=== PATIENT | male | born 1985 | race American Indian/Alaskan Native ===

== ENCOUNTER 2020-11-24 19:41 | Emergency (ER) | payer BC ==
[2020-11-25 00:32] VITALS: BP 109/85
== END 2020-11-25 00:26 | disposition home or self-care (01) ==
LOC: ED 19:41
DX: T78.40XA Allergy, unspecified, initial encounter (principal); L50.8 Other urticaria; L29.9 Pruritus, unspecified; F12.90 Cannabis use, unspecified, uncomplicated; F17.200 Nicotine dependence, unspecified, uncomplicated; Z79.899 Other long term (current) drug therapy; Z91.013 Allergy to seafood; X58.XXXA Exposure to other specified factors, initial encounter
CPT/HCPCS: 96374; 96375; 99282; J1200; J2930